=== PATIENT | male | born 1980 | race Caucasian/White ===

== ENCOUNTER 2016-08-13 12:20 | Emergency (ER) | payer OTHER ==
[2016-08-13 12:49] VITALS: BP 158/121
[2016-08-13] MEDS ORDERED: IBUPROFEN 400 MG TABLET PO ONE (13:18)
[2016-08-13] MEDS ORDERED: IBUPROFEN 400 MG TABLET ONE (13:20)
--- NOTE | 2016-08-13 13:20 | ERNOTE ---
Lower Extremity HPI - General Lower Extremities Pain: knee: left Time Seen by Provider: 08/13/16 13:12 Source: patient Exam Limitations: no limitations - Immun/Allergies/Home Medications Immunizations: IMMUNIZATION HX Immunizations Up to Date Yes History of Influenza Vaccine No Hx Pneumococcal Vaccination No Allergies/Adverse Reactions: Allergies Allergy/AdvReac Type Severity Reaction Status Date / Time No Known Allergies Allergy Verified 08/13/16 12:49 Home Medications: HOME MEDICATIONS Allopurinol [Zyloprim] 08/13/16 [Last Taken Unknown] Ibuprofen [Motrin] 800 mg PO TID PRN #60 tab 08/13/16 [Last Taken Unknown] - History of Present Illness Narrative: Patient had a large rubber ball fall and hit his left knee. He has pain in it since, has not taken any medications yet, no other injuries Date (Duration): 08/13/16 Time (Timing): 09:30 Occurred: this morning Location of Incident: work Method of Injury: Reports: direct blow Loss of Consciousness: Reports: no loss of consciousness Modifying Factors - (Improves): Reports: rest Modifying Factors - (Worsens): Reports: movement Associated Symptoms: Denies: unable to bear weight Other Injuries: Reports: none Subsequent Symptoms: Denies: sensory loss, numbness Review of Systems - Review of Systems Constitutional: Absent: recent illness, fever Respiratory: Absent: shortness of breath Cardiology: Absent: chest pain Gastrointestinal/Abdominal: Absent: nausea, abdominal pain Genitourinary: Present: no symptoms reported Musculoskeletal: Present: See HPI Neurological: Absent: weakness, numbness - Patient's Past Medical History Patient History - Medical: Other Patient History - Cardiac/Respiratory: No pertinent hx Patient History - Cancer: No Hx of Cancer Patient History - Surgical Procedures: Ear Tubes, Other Patient History - Other: None - Social History Living Situations: home Psych History: No pertinent hx Smoking Status: Current every day smoker - Immunizations Immunizations Up to Date: Yes Hx Pneumococcal Vaccination: No History of Influenza Vaccine: No Physical Exam - Physical Exam General Appearance: Present: wd/wn, alert, no apparent distress Respiratory: Present: no respiratory distress, normal breath sounds, lungs clear Cardiovascular/Chest: Present: regular rate, rhythm, no murmur Extremity Exam: Present: normal inspection - no deformity, no bruising, no swelling, no effusion, normal range of motion, other - tender over anterior and medial joint Neurological Exam: Present: alert, oriented, normal mood/affect, no motor/ sensory deficits Skin Exam: Present: normal color, warm/dry ED Progress - Vital Signs Patient's Vital Signs:: I have reviewed the patient's vital signs. Vital Signs: Vital Signs 08/13/16 12:46 Temperature 37.1 C Pulse Rate 78 Respiratory 16 Rate Blood Pressure 158/121 O2 Sat by Pulse 100 Oximetry - X-Ray X-Ray #1 X-Ray: knee - no acute bony injury Interpretation: Interp. by me - Progress/Reassessment Chief Complaint: Lower Extremity Pain/ Injury Departure Clinical Impression: Contusion of left knee Qualifiers: Encounter type: initial encounter Qualified Code(s): S80.02XA - Contusion of left knee, initial encounter - Departure Disposition: Home self-care Condition: Good Instructions: Contusion, [id number] Additional Instructions: take ibuprofen as needed for pain call the work comp clinic on Monday for a follow up appointment Referrals: Ilan Ayala MD [Primary Care Provider] - Prescriptions: Ibuprofen [Motrin] 800 mg PO TID PRN #60 tab PRN Reason: Pain
--- OUTSIDE RECORDS SUMMARY | 2016-08-13 13:48 | XMS REPORT | Continuity of Care Document ---
:1980 Author Organization [facility] ([facility]) Address [address] [place] [address] Phone [phone] Care Team Providers Name Role Phone Unavailable Primary Care Provider Unavailable Source Comments This disclosure is being made pursuant to the Care Everywhere program, applicable federal and state laws, and may not contain all informaitonavailable regarding this patient.[facility] ([facility]) Active Allergies and Adverse Reactions Not on File Current Medications Not on file Active Problems Not on file Social History Tobacco Use Types Packs/Day Years Used Date Never Assessed Plan of Care Health Maintenance Due Date Last Done Comments Hepatitis B Vaccine (1 of 3 - Primary Series) 1980 Tdap Vaccine 1989 Lipid Disorder Screening 1996 MMR Vaccine 1996 Td Vaccine 1996 Influenza Vaccine: Seasonal (#1) 10/26/2015 Results from Last 3 Months Not on file
== END 2016-08-13 13:28 | disposition home or self-care (01) ==
LOC: MERGE 12:20 → ER 12:20
DX: S80.02XA Contusion of left knee, initial encounter (principal); F17.200 Nicotine dependence, unspecified, uncomplicated; W20.8XXA Other cause of strike by thrown, projected or falling object, initial encounter; Y93.89 Activity, other specified; Y92.89 Other specified places as the place of occurrence of the external cause; Y99.0 Civilian activity done for income or pay